=== PATIENT | female | born 2000 ===

== ENCOUNTER 2021-09-20 17:27 | Emergency (ER) | payer SELFPAY ==
[2021-09-20 18:36] LABS: CORONAVIRUS COVID-19 NAA NEGATIVE (NEGATIVE); RESPIRATORY SYNCYTIAL VIR NAA NEGATIVE (NEGATIVE)
== END 2021-09-20 19:36 | disposition home or self-care (01) ==
LOC: DL.ED 17:27
DX: J02.9 Acute pharyngitis, unspecified (principal); Z20.822 Contact with and (suspected) exposure to COVID-19
CPT/HCPCS: 0241U; 99283

== ENCOUNTER 2021-11-01 13:49 | Emergency (ER) | payer SELFPAY ==
[2021-11-01 15:19] LABS: CORONAVIRUS COVID-19 NAA NEGATIVE (NEGATIVE)
== END 2021-11-01 16:44 | disposition home or self-care (01) ==
LOC: DL.ED 13:49
DX: J06.9 Acute upper respiratory infection, unspecified (principal); R09.82 Postnasal drip; Z20.822 Contact with and (suspected) exposure to COVID-19
CPT/HCPCS: 0240U; 87081; 87430; 99283